=== PATIENT | male | born 1960 ===

== ENCOUNTER → 2022-12-22 | Outpatient (CLI) | payer BC ==
[2022-12-22 15:18] LABS: Alanine Aminotransfer (ALT/SGP 48 U/L (12-78); Albumin, Blood 4.1 g/dL (3.4-5.0); Albumin/Globulin Ratio 1.2 (0.8-1.8); Alk Phos 59 U/L (50-136); Anion Gap 7 mmol/L (6-16); Aspartate Aminotrans (AST/SGOT 26 U/L (12-37); Bilirubin, Total 0.9 mg/dL (0.1-1.0); Blood Urea Nitrogen 13 mg/dL (8-24); Bun/Creatinine Ratio 15.1 (12.0-20.0); CHOL/HDL RATIO 2.1; CO2, Blood 22 mmol/L (21-32); Calcium, Blood 9.2 mg/dL (8.5-10.1); Chloride, Blood 107 mmol/L (98-108); Cholesterol 103 mg/dL (50-200); Creatinine, Blood 0.86 mg/dL (0.60-1.20); Globulin, Blood 3.5 g/dL (2.2-4.0); Glomerular Filtration Rate 99 (60-); Glucose, Blood 100 mg/dL (70-99); HDL Cholesterol 49 mg/dL (>39); LDL/HDL RATIO 0.8; Low Density Lipoprotein Chol 40 mg/dL (0-110); Potassium, Blood 4.1 mmol/L (3.5-5.5); Prostate Specific Antigen 0.899 ng/mL (0.000-4.000); Sodium, Blood 136 mmol/L (136-145); Total Protein, Blood 7.6 g/dL (6.4-8.2); Triglycerides 70 mg/dL (30-160); Very Low Density Lipoprot Chol 14 mg/dL (6-32)
[2022-12-22 17:41] LABS: BASOPHILS PERCENT AUTO 1 % (0-2); EOSINOPHILS ABSOLUTE AUTO 0.12 K/mm3 (0.00-0.68); EOSINOPHILS PERCENT AUTO 1 % (0-6); Hematocrit 43.6 % (37.0-53.0); Hemoglobin 15.4 g/dL (13.5-17.5); IMMATURE GRAN ABSOLUTE AUTO 0.03 K/mm3 (0.00-0.10); IMMATURE GRAN PERCENT AUTO 0 % (0-1); LYMPHOCYTES ABSOLUTE AUTO 2.15 K/mm3 (0.84-5.20); LYMPHOCYTES PERCENT AUTO 22 % (21-46); MONOCYTES ABSOLUTE AUTO 1.08 K/mm3 (0.16-1.47); MONOCYTES PERCENT AUTO 11 % (4-13); Mean Corpuscular HGB 33.7 pg (26.0-34.0); Mean Corpuscular HGB Conc 35.3 g/dL (31.5-36.5); Mean Corpuscular Volume 95 fL (80-100); Mean Platelet Volume 10.3 fL (9.1-12.4); NEUTROPHILS ABSOLUTE AUTO 6.12 K/mm3 (1.96-9.15); NEUTROPHILS PERCENT AUTO 64 % (41-73); Platelet Count 261 K/mm3 (150-400); RDW Coefficient Variation 11.7 % (11.7-14.2); RDW Standard Deviation 41.1 fL (35.1-46.3); Red Blood Cell Count 4.57 M/mm3 (4.30-5.90)
== END ==
LOC: LAB 13:20 → LAB SHORT 13:20
PROVIDERS: Nurse Practitioner Family
DX: Z51.81 Encounter for therapeutic drug level monitoring (principal); Z79.899 Other long term (current) drug therapy
CPT/HCPCS: 80053; 80061; 83036; 84443; 85025; G0103

== ENCOUNTER → 2023-10-23 | Outpatient (CLI) | payer OTHER ==
[2023-10-23 17:32] LABS: CHOL/HDL RATIO 2.1; Cholesterol 131 mg/dL (50-200); HDL Cholesterol 61 mg/dL (>39); LDL/HDL RATIO 0.9; Low Density Lipoprotein Chol 53 mg/dL (0-110); Triglycerides 85 mg/dL (30-160); Very Low Density Lipoprot Chol 17 mg/dL (6-32)
== END ==
LOC: LAB SHORT 10:00 → LAB 10:00
PROVIDERS: Nurse Practitioner Family
DX: I63.9 Cerebral infarction, unspecified (principal)
CPT/HCPCS: 80061